=== PATIENT | male | born 1980 | race Caucasian/White ===

== ENCOUNTER 2025-01-18 10:18 | Emergency (ER) | payer BC ==
[~2025-01-18] VITALS: Ht 187.9 cm; Wt 158.8 kg
[2025-01-18] MEDS ORDERED: XARE20MG PO (10:36)
[2025-01-18] MEDS ORDERED: LEVOTHYROXINE150 MCG PO (10:36)
[2025-01-18] MEDS ORDERED: SODIUM CHLORIDE 0.9% 1,000 ML IV ONE (10:45)
[2025-01-18 11:12] LABS: HEMATOCRIT 39.9 % (42.0-52.0); MEAN CELL VOLUME 91.3 fl (80.0-94.0); MEAN CORPUSCULAR HGB 30.2 pg (27.0-31.0); MEAN CORPUSCULAR HGB CONC 33.1 g/dl (33.0-37.0); MEAN PLATELET VOLUME 8.6 fl (9.6-12.3); PLATELET COUNT AUTOMATED 245 10*3/uL (130-400); RED BLOOD COUNT 4.37 10*6/uL (4.50-5.90); RED CELL DISTRI WIDTH 12.9 % (0-14.5)
[2025-01-18 11:13] LABS: MANUAL DIFF REFLEX YES
[2025-01-18 11:31] LABS: PLATELET SUFFICIENCY NORMAL (NORMAL); TOTAL CELLS COUNTED 100 #CELLS
[2025-01-18 11:34] LABS: BUN 15 mg/dl (9-23); CHLORIDE 105 mmol/L (98-107); POTASSIUM 3.5 mmol/L (3.4-5.1)
[2025-01-18] MEDS ORDERED: Sulfamethoxazole/Trimethopri 1 TAB TAB PO ONE (11:40)
[2025-01-18] MEDS ORDERED: ceFAZolin sodium/sodium chlor 10 ML IV ONE (11:40)
[2025-01-18] MEDS ORDERED: CEPHALEXIN500 M1 PO (11:48)
[2025-01-18] MEDS ORDERED: SEPTDS PO (11:48)
== END 2025-01-18 12:01 | disposition home or self-care (01) ==
LOC: ED 10:18
PROVIDERS: Emergency Medicine
DX: L03.115 Cellulitis of right lower limb (principal); R50.9 Fever, unspecified; Z88.8 Allergy status to other drugs, medicaments and biological substances; Z79.899 Other long term (current) drug therapy